=== PATIENT | male | born 1990 | race Caucasian/White ===

== ENCOUNTER 2017-01-14 18:02 | Emergency (ER) | payer BC, OTHER ==
[~2017-01-14] VITALS: Ht 190.5 cm; Wt 83.5 kg
[~2017-01-14 18:02] MED LIST: CLR10 PO
[2017-01-14 18:21] VITALS: TEMP 36.7; Ht 190.5 cm; Wt 83.5 kg
--- NOTE | 2017-01-14 19:18 | DIAGNOSTIC IMAGING REPORT ---
RIGHT ANKLE MIN 3 VIEWS ROUTINE CLINICAL HISTORY: Right ankle pain and swelling. Trauma. COMPARISON: None. DISCUSSION: No fractures or dislocations are visualized. IMPRESSION: No fractures or dislocations identified. Electronically signed by: Jun Lauren M.D. 01/14/2017 7:17 PM Dictated Date/Time: 01/14/2017 7:16 PM
[2017-01-14 19:42] VITALS: BP 121/87; PULSE 63; O2SAT 95
--- NOTE | 2017-01-15 23:42 | EMERGENCY ROOM VISIT NOTE ---
ED Visit Note First contact with patient: 18:27 Chief Complaint: Right ankle pain. History of Present Illness: Mr. Madden is a 26-year-old white male who ambulates into the ED accompanied by female complaining of pain, swelling and bruising over the distal right tibia and medial right ankle. Patient reports he was playing kickball over the weekend with family members when he first noted the onset of his lower leg and ankle pain. He reports since that time the pain has been constant and gradually increasing in intensity. He describes his pain as a deep achy sensation and intermittent sharp sensation predominantly over the distal anterior tibia and over the medial malleolus area. He rates his discomfort 7/10. The pain is nonradiating. The pain worsens with palpation, ambulation, inversion and plantarflexion. He has not identified any alleviating factors related to the pain. He has not taken any medications for pain prior to the hospital. Associated with his pain he reports mild paresthesias of the foot. He denies any hip pain, knee pain, leg weakness. He denies any previous significant injuries or surgeries to the right ankle/ foot. Review of Systems: As noted above in history of present illness. Past Medical History: Asthma. Current Medications: Claritin. Allergies to Medications: Patient denies. Social History: Patient is currently employed; he lives with his girlfriend and feels safe in his home environment; he denies tobacco use and admits to alcohol use. Physical Examination: Vital Signs: Date Time Temp Pulse Resp B/P (MAP) Pulse Ox O2 Delivery O2 Flow Rate FiO2 01/14/17 19:42 63 18 121/87 95 Room Air 01/14/17 18:21 36.7 67 18 131/83 99 Room Air GENERAL: 26-year-old male in mild distress due to pain, nontoxic-appearing, afebrile and hemodynamically stable. NEUROLOGICAL: Awake, alert and oriented to person, place and time. Answering questions appropriately and following commands. SKIN: Warm, dry and pink. No open soft tissue trauma noted. RIGHT LOWER EXTREMITY: No gross bony deformity. No tenderness in the hip, knee or proximal lower leg. Moderate tenderness over the anterior and medial tibia with mild swelling and ecchymosis, moderate tenderness over the medial malleolus and the anterior and inferior ligamentous structures. This is additionally associated with swelling and ecchymosis. I also note ecchymosis over the lateral portion of the ankle just inferior to the malleolus. He does have full range of motion in all movements of the ankle and foot. On ligamentous testing I do not appreciate any laxity but he does have severe pain when I performed a drawl test. I did not appreciate any bony crepitus. He does have full range of motion in all movements ankle. Distal pulses are intact. Capillary refill is brisk. He is able to distinguish light sensations. ED Course: Patient is assessed as noted above. Patient's medication list was reviewed. Patient was given ice for pain and swelling; he refused pain medications. Right Ankle X-Rays: Was read by myself and the radiologist showing no acute fractures or dislocations. Patient was placed in a gel splint and on nonweightbearing crutches. Patient was educated about today's findings and instructed on his treatment plan ; he verbalizes understanding and agreement with this plan. Clinical Impression: Right ankle pain. Disposition: Patient discharged home in stable condition accompanied by female friends; prior to departure he was reassessed and subjectively reported he was feeling better and rated his discomfort 2/10. Plan: Comfort measures were discussed with the patient including rest, ice, elevation , splint and sling use and the use of ibuprofen or acetaminophen. Patient was encouraged to follow-up with transport specialist if no better in 7 -10 days. Patient was encouraged return the ED for worsening/uncontrolled pain, uncontrolled swelling, foot weakness/numbness/tingling or any new/concerning symptoms.
== END 2017-01-14 19:47 | disposition home or self-care (01) ==
LOC: C.EDB 18:04 → C.EDD 19:47
DX: M25.571 Pain in right ankle and joints of right foot (principal); X58.XXXA Exposure to other specified factors, initial encounter; Y93.6A Activity, physical games generally associated with school recess, summer camp and children; J45.909 Unspecified asthma, uncomplicated; Z79.899 Other long term (current) drug therapy